=== PATIENT | female | born 1985 | race African-American/Black ===

== ENCOUNTER 2019-01-18 08:10 | Emergency (ER) | payer MEDICAID, OTHER ==
[~2019-01-18] VITALS: Ht 157.5 cm; Wt 73.1 kg
[2019-01-18 08:17] VITALS: BP 114/71; PULSE 109; RESP 18; Ht 157.5 cm; Wt 73.1 kg
[2019-01-18] MEDS ORDERED: BENZ-6 PO (08:47)
[2019-01-18] MEDS ORDERED: D-ME473S2 PO (08:47)
[2019-01-18] MEDS ORDERED: IBUP800T48 PO (08:47)
[2019-01-18] MEDS: IBUPROFEN 800 MG TAB PO ONE ×2 (09:02→09:15)
[2019-01-18] MEDS ORDERED: ACET325T33 PO (09:05)
[2019-01-18] MEDS ORDERED: ACETAMINOPHEN 325 MG TAB PO ONE (09:30)
--- NOTE | 2019-01-18 14:44 | ERD ---
ER Documentation Chief Complaint Chief Complaint throat pain x 3 days HPI 33-year-old female presenting with sore throat x3 days. Patient denies any fevers. She has a dry cough. Was given amoxicillin at the clinic with no alleviation of symptoms. Denies other medical problems. NKDA. Surgical history denies. Social history denies ROS All systems reviewed and are negative except as per history of present illness. Medications Home Meds Active Scripts Acetaminophen* (Tylenol*) 325 Mg Tablet, 2 TAB PO Q6 PRN for PAIN AND OR ELEVATED TEMP, #20 TAB Prov:NIKITA SALMON PA-C 01/18/19 Allergies Allergies: Coded Allergies: No Known Allergy (Unverified , 01/18/19) PMhx/Soc Medical and Surgical Hx: pt denies Medical Hx, pt denies Surgical Hx Hx Alcohol Use: No Hx Substance Use: No Hx Tobacco Use: No FmHx Family History: No diabetes, No coronary disease, No other Physical Exam Vitals Vital Signs Date Temp Pulse Resp B/P (MAP) Pulse Ox O2 O2 Flow FiO2 Time Delivery Rate 01/18/19 97.6 109 18 114/71 99 08:17 (85) Physical Exam GENERAL: The patient is well-appearing, well-nourished, in no acute distress HEENT: Atraumatic. Conjunctivae are pink. Pupils equal, round, and reactive to light. There is no scleral icterus. Tympanic membranes clear bilaterally. Oropharynx clear. NECK: C-spine is soft and supple. There is no meningismus. There is no cervical lymphadenopathy. CHEST: Clear to auscultation bilaterally. There are no rales, wheezes or rhonchi. HEART: Regular rate and rhythm. No murmurs, clicks, rubs or gallops. Results 24 hrs Current Medications Medications Dose Sig/Caitlyn Start Time Status Last (Trade) Ordered Route PRN Stop Time Admin Dose Reason Admin Ibuprofen 800 mg ONCE ONCE 01/18/19 DC (Motrin) PO 09:00 01/18/19 09:01 650 mg ONCE ONCE 01/18/19 DC 01/18/19 Acetaminophen PO 09:30 09:19 (Tylenol 01/18/19 09:30 Tab) Procedures/MDM MDM: 33-year-old female presenting with a sore throat. A low suspicion for bacterial HEENT infection. I have low suspicion for pneumonia. I have low suspicion for meningitis or sepsis. Patient is discharged with strict your precautions and symptoms are likely associated with viral syndrome. Patient is told symptoms change or worsen to return immediately to the ER. All questions answered at discharge Departure Diagnosis: Primary Impression: Sore throat Condition: Stable Patient Instructions: When You Have a Sore Throat Referrals: [facility] YOU HAVE RECEIVED A MEDICAL SCREENING EXAM AND THE RESULTS INDICATE THAT YOU DO NOT HAVE A CONDITION THAT REQUIRES URGENT TREATMENT IN THE EMERGENCY DEPARTMENT. FURTHER EVALUATION AND TREATMENT OF YOUR CONDITION CAN WAIT UNTIL YOU ARE SEEN IN YOUR DOCTORS OFFICE WITHIN THE NEXT 1-2 DAYS. IT IS YOUR RESPONSIBILITY TO MAKE AN APPOINTMENT FOR FOLOW-UP CARE. IF YOU HAVE A PRIMARY DOCTOR --you should call your primary doctor and schedule an appointment IF YOU DO NOT HAVE A PRIMARY DOCTOR YOU CAN CALL OUR PHYSICIAN REFERRAL HOTLINE AT IF YOU CAN NOT AFFORD TO SEE A PHYSICIAN YOU CAN CHOSE FROM THE FOLLOWING [facility] [address] [facility]. [facility] [address] [facility] [facility] [address] [facility] [facility] [address] [facility]. [facility] [address] [facility]. [facility]. [address] Additional Instructions: FOLLOW UP WITH YOUR PRIMARY CARE PHYSICIAN TOMORROW.Return to this facility if you are not improving as expected. NIKITA SALMON PA-C Jan 18, 2019 14:44
== END 2019-01-18 09:26 | disposition home or self-care (01) ==
LOC: FTE 08:10
DX: R07.0 Pain in throat (principal)
CPT/HCPCS: Z7502; Z7610; 99282